=== PATIENT | female | born 1990 | race Caucasian/White ===

== ENCOUNTER 2019-07-08 12:28 | Emergency (ER) | payer OTHER ==
[~2019-07-08] VITALS: Ht 172.7 cm; Wt 72.6 kg
[2019-07-08 12:59] LABS: INFLUENZA A ANTIGEN Positive (Negative); INFLUENZA B ANTIGEN Negative (Negative)
[2019-07-08] MEDS ORDERED: XOFLUZA40 MG PO (13:04)
[2019-07-08] MEDS ORDERED: PREDNISONE 10 M10 M1 PO (13:04)
[2019-07-08] MEDS ORDERED: TESSALON PERLE100 M1 PO (13:04)
[2019-07-08 13:25] VITALS: BP 125/70
== END 2019-07-08 13:25 | disposition home or self-care (01) ==
LOC: M.ERS 12:28
PROVIDERS: Nurse Practitioner
DX: J11.1 Influenza due to unidentified influenza virus with other respiratory manifestations (principal); F17.210 Nicotine dependence, cigarettes, uncomplicated; Z90.49 Acquired absence of other specified parts of digestive tract